=== PATIENT | female | born 1935 | race Caucasian/White ===

== ENCOUNTER → 2018-02-14 08:07 | Day surgery (SDC) | payer MEDICARE, OTHER ==
[~2018-02-14 08:07] MED LIST: Acetaminophen TAB* 325 MG PO PRN; Buffered Lidocaine 0.9% SYRIN* 5 ML/SYR SYRINGE INTRADERM ONE; Dexamethasone IV* 4 MG/ML 1 ML (4 MG) IV SLOW PU ONE; Dexamethasone IV* 4 MG/ML 1 ML (4 MG) ONE; DiMENhydriNATE IV* 50 MG/ML VIAL IV PUSH PRN; EPHEDrine (Pressors)* 50 MG/ML VIAL ONE; Famotidine IV* 10 MG/ML 2 ML (20 mg) IV ONE; Famotidine IV* 10 MG/ML 2 ML (20 mg) ONE; HYDROcodone/ACETAMIN 5-325 MG* 1 TAB ONE; HYDROcodone/ACETAMIN 5-325 MG* 1 TAB PO PRN; Lidocaine 1% INJ* 10 MG/ML 30 ML SDV ONE; Lidocaine 2% PF * 5 ML VIAL ONE; Midazolam* 1 MG/ML 2 ML VIAL (2 MG) ONE; Naloxone* 0.4 MG/ML 1 ML VIAL IV PRN; Ondansetron INJ* 2 MG/ML VIAL ONE; Propofol* 10 MG/ML 20 ML BTL IV PUSH ONE; ceFOXitin 2 GM IVPREMIX* 2 GM/50 ML BAG ONE; fentaNYL* 50 MCG/ML 2 ML VIAL (100 MCG VIAL) IV PRN; fentaNYL* 50 MCG/ML 2 ML VIAL (100 MCG VIAL) ONE; oxyCODONE TAB* 5 MG TAB PO PRN
[2018-02-14 13:01] VITALS: BP 168/83
--- NOTE | 2018-02-14 21:31 | OP ---
OPERATIVE REPORT: DATE OF OPERATION: 02/14/18 DATE OF : 33 SURGEON: Rossana Barrera MD ANESTHESIA: General endotracheal with paracervical block; Dr. Torres for the general and paracervical block, Dr. Barrera. ANESTHESIOLOGIST: Sulaiman Torres MD PRE-OP DIAGNOSIS: Postmenopausal bleeding. POST-OP DIAGNOSES: Postmenopausal bleeding, endometrial polyp. OPERATIVE PROCEDURE: Dilation and curettage, hysteroscopic MyoSure resection of polyp. ESTIMATED BLOOD LOSS: Minimal. URINE OUTPUT: 300 cc. DEFICIT: 330 cc. FINDINGS: Revealed multiple endometrial polyps approximately 5, normal uterine cavity with removal of polyps. COMPLICATIONS: None apparent. DISPOSITION: Stable to recovery room. DESCRIPTION OF PROCEDURE: The patient was placed in dorsal lithotomy position. Legs were placed in Lincoln Jamal stirrups. The perineum and vagina were prepped and draped in a sterile standard fashion. The patient was identified with universal protocol for correct procedure, position, and patient. Self- cath was inserted for drainage of clear yellow urine, 300 cc. Self-cath was removed. A sterile speculum was inserted, cervix was visualized, grasped on the anterior lip with single tooth tenaculum and a paracervical block of 10 cc of 1% lidocaine was carried out. The cervix was then dialed to 9 Hegar dilator. MyoSure hysteroscope was inserted and multiple endometrial polyps were noted. Using Myosure XL, the polypectomy was performed on 5 polyps. These were all sent together. The tubal ostia were noted to have a normal appearance. The MyoSure hysteroscope was removed. A sharp curettage was then performed. MyoSure was reinserted confirming excellent sampling of the endometrium. The single tooth tenaculum was removed. Hemostasis was noted at the tenaculum site. All sponge, needle, instrument, blade counts were correct throughout the case. The patient tolerated the procedure well and went to recovery room in a stable condition. [id number]/[facility] #: [id number] [facility]
== END | disposition home or self-care (01) ==
LOC: OR 08:07
PROVIDERS: ATTEND Obstetrics & Gynecology
DX: N95.0 Postmenopausal bleeding (principal); N84.0 Polyp of corpus uteri; K21.9 Gastro-esophageal reflux disease without esophagitis; I10 Essential (primary) hypertension; F41.9 Anxiety disorder, unspecified; F11.90 Opioid use, unspecified, uncomplicated
CPT/HCPCS: 88305; J0694; J1100; J2250; J2405; J2704; J3010